=== PATIENT | male | born 1985 | race Caucasian/White ===

== ENCOUNTER 2017-02-26 15:23 | Emergency (ER) | payer OTHER ==
[2017-02-26 15:42] VITALS: BP 133/78
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
[2017-02-26] MEDS ORDERED: LORAZEPAM 0.5 MG TABLET PO ONE (15:58)
== END 2017-02-26 17:16 | disposition home or self-care (01) ==
LOC: ER 15:23
DX: S50.312A Abrasion of left elbow, initial encounter (principal); S80.211A Abrasion, right knee, initial encounter; V49.9XXA Car occupant (driver) (passenger) injured in unspecified traffic accident, initial encounter; F43.10 Post-traumatic stress disorder, unspecified
CPT/HCPCS: 99283